=== PATIENT | female | born 1960 | race Caucasian/White ===

== ENCOUNTER 2024-06-06 12:26 | Inpatient (IN) ==
[2024-06-06] MEDS ORDERED: Rocuronium 50 mg VIAL 10 mg/ml 5 ml VIAL (50 mg) ONE (12:41)
[2024-06-06] MEDS ORDERED: Etomidate 40 mg/20 ml (2 MG/ML) 20 ml VIAL (40 mg) ONE (12:41)
[2024-06-06] MEDS ORDERED: Propofol 10 mg/ml 100 ML BTL 0 MG/0 ML BTL ONE (12:41)
[2024-06-06] MEDS ORDERED: fentaNYL 100 mcg/2 ml 50 MCG/ML VIAL ONE (13:12)
[2024-06-06 13:24] LABS: ABS Lymphocytes 1.5 10^3/uL (1.0-4.8); ABS Monocytes 0.5 10^3/uL (0.0-0.9); ABS Neutrophils 6.7 10^3/uL (1.5-7.6); ABS Nucleated RBC 0.01 10^3/ul; Eosinophil % 0.2 %; Hematocrit 31.2 % (35-45); Hemoglobin 10.8 g/dL (11.5-14.3); Lymphocyte % 17.6 %; Mean Corpuscular Hemoglobin 29.8 pg (27-33); Mean Corpuscular Hgb Conc 34.7 g/dL (31-36); Mean Corpuscular Volume 85.9 fL (80-97); Mean Platelet Volume 8.7 fL (7.5-11.2); Nucleated Red Blood Cells % 0.1 %/100WBC (0.0-0.8); Platelet Count 278 10^3/uL (150-450); Red Blood Count 3.64 10^6/uL (3.63-4.92); Red Cell Distribution Width 13.2 % (12-17); White Blood Count 8.8 10^3/uL (3.8-11.8)
[2024-06-06] MEDS: Iodixanol (CONTRAST) 320 MG/ML 100 ML SDV IV ONE (13:29)
[2024-06-06 13:39] LABS: High Sens Troponin Baseline 3 pg/mL (<15)
[2024-06-06 13:42] LABS: Urine Benzodiazepine Screen None Detected (None Detect); Urine Buprenorphine Screen None Detected (None Detect); Urine Cannabinoids Screen None Detected (None Detect); Urine Fentanyl Screen None Detected (None Detect); Urine Hydrocodone Screen None Detected (None Detect); Urine Opiates Screen None Detected (None Detect)
[2024-06-06] MEDS: fentaNYL INFUSION 50 mcg/mL VL 2,500 MCG/50 ML VIAL IV SCH (13:45)
[2024-06-06 13:49] LABS: ALT 14 U/L (7-52); AST 16 U/L (13-39); Acetaminophen < 15 mcg/mL; Albumin 3.8 g/dL (3.2-5.2); Alcohol, S 195 mg/dL (<13); Alkaline Phosphatase 51 U/L (35-149); Anion Gap 12 mmol/L (2-16); Blood Urea Nitrogen 8 mg/dL (6-24); CO2 Carbon Dioxide 20 mmol/L (22-32); Chloride 104 mmol/L (101-111); Creatinine, Serum 0.64 mg/dL (0.51-0.95); Globulin 1.9 g/dL (2-4); Glucose 220 mg/dL (70-100); Salicylate < 2.50 mg/dL (<30); Sodium 136 mmol/L (135-145); Total Bilirubin 0.2 mg/dL (0.2-1.0); Total Protein 5.7 g/dL (6.4-8.9); eGFR CKD-EPI 99.2 (>60)
[2024-06-06] MEDS: fentaNYL 100 mcg/2 ml 50 MCG/ML VIAL IV SLOW PU ONE ×2 (13:59→15:27)
[2024-06-06 15:15] LABS: Resp Rate 15
[2024-06-06] MEDS: Propofol 10 mg/ml 100 ML BTL 1,000 MG/100 ML BTL IV SCH ×2 (15:17→16:42)
[2024-06-06 15:20] LABS: PCO2 Arterial 42 mmHg (35-45); PO2 Arterial 99 mmHg (80-100)
[2024-06-06 15:31] LABS: Creatine Kinase 153 U/L (10-223)
[2024-06-06] MEDS: Chlorhexidine MOUTHWASH 0.12% 15 ML UDC TOPICAL SCH (16:41)
[2024-06-06] MEDS: Norepinephrine 4 MG/250mL D5W 4,000 MCG/250 ML BAG IV SCH (17:29)
[2024-06-06 17:49] LABS: High Sensitivity Troponin 1 Hr 5 pg/mL (<15)
[2024-06-06] MEDS: KCL 20 MEQ/100 ML IVPREMIX 20 MEQ/100 ML BAG IV SCH (18:56)
[2024-06-06] MEDS: Enoxaparin 40 MG/0.4 ML SYR SUBCUT SCH (20:52)
[2024-06-06] MEDS: Famotidine IV 10 MG/ML 2 ml VIAL (20 mg) IV SLOW PU SCH (20:53)
[2024-06-07] MEDS: Midazolam 2 mg/2 ml VIAL 1 mg/ml 2 ml VIAL (2 mg) IV SLOW PU ONE (01:54)
[2024-06-07] MEDS: Midazolam 2 mg/2 ml VIAL 1 mg/ml 2 ml VIAL (2 mg) ONE (01:54)
[2024-06-07 05:08] LABS: ABS Eosinophils 0.1 10^3/uL (0.0-0.5); ABS Lymphocytes 2.2 10^3/uL (1.0-4.8); ABS Monocytes 0.8 10^3/uL (0.0-0.9); ABS Neutrophils 6.5 10^3/uL (1.5-7.6); ABS Nucleated RBC 0.01 10^3/ul; Eosinophil % 1.3 %; Hematocrit 34.2 % (35-45); Hemoglobin 11.5 g/dL (11.5-14.3); Lymphocyte % 23.1 %; Mean Corpuscular Hemoglobin 28.7 pg (27-33); Mean Corpuscular Hgb Conc 33.7 g/dL (31-36); Mean Corpuscular Volume 85.4 fL (80-97); Mean Platelet Volume 8.2 fL (7.5-11.2); Nucleated Red Blood Cells % 0.1 %/100WBC (0.0-0.8); Platelet Count 224 10^3/uL (150-450); Red Cell Distribution Width 13.8 % (12-17); White Blood Count 9.7 10^3/uL (3.8-11.8)
[2024-06-07 05:50] LABS: Calcium 7.1 mg/dL (8.6-10.3); Creatinine, Serum 0.58 mg/dL (0.51-0.95); Magnesium 1.5 mg/dL (1.9-2.7); Potassium 3.9 mmol/L (3.5-5.0); eGFR CKD-EPI 101.6 (>60)
[2024-06-07] MEDS: Magnesium Sulfate 2 gm BAG 2 GM/50 ML BAG IVPB ONE (06:20)
[2024-06-07] MEDS: Magnesium Sulfate IV 1GM/100ML 1 GM/100 ML BAG IV ONE (08:27)
[2024-06-07] MEDS ORDERED: Lorazepam PYXIS KEY PRN (15:08)
[2024-06-07] MEDS: LORazepam 2 mg VIAL 1 ml IV PUSH ONE (16:09)
[2024-06-08 05:19] LABS: Hematocrit 29.8 % (35-45); Hemoglobin 10.4 g/dL (11.5-14.3); Mean Corpuscular Volume 85.7 fL (80-97); Red Blood Count 3.48 10^6/uL (3.63-4.92); White Blood Count 6.3 10^3/uL (3.8-11.8)
[2024-06-08 05:20] LABS: ABS Eosinophils 0.1 10^3/uL (0.0-0.5); ABS Lymphocytes 1.5 10^3/uL (1.0-4.8); ABS Monocytes 0.5 10^3/uL (0.0-0.9); ABS Neutrophils 4.2 10^3/uL (1.5-7.6); Lymphocyte % 23.7 %; Mean Corpuscular Hemoglobin 29.8 pg (27-33); Mean Corpuscular Hgb Conc 34.8 g/dL (31-36); Mean Platelet Volume 8.3 fL (7.5-11.2); Nucleated Red Blood Cells % 0.1 %/100WBC (0.0-0.8); Platelet Count 154 10^3/uL (150-450); Red Cell Distribution Width 13.6 % (12-17)
[2024-06-08 05:48] LABS: Calcium 7.6 mg/dL (8.6-10.3); Creatinine, Serum 0.57 mg/dL (0.51-0.95); Potassium 3.8 mmol/L (3.5-5.0)
[2024-06-08 13:54] LABS: Methemoglobin, B 0.1 % (0.0-1.5)
[2024-06-08] MEDS: LORazepam 2 mg VIAL 1 ml IV PUSH ONE (14:06)
[2024-06-08 15:41] VITALS: BP 122/89
== END 2024-06-08 16:22 | DRG 816 ==
LOC: ED 12:26 → EDHOLD 14:14 → ICU 15:13
PROVIDERS: ADMIT Internal Medicine Pulmonary Disease; ATTEND Internal Medicine Pulmonary Disease

== ENCOUNTER 2024-06-08 13:25 | Inpatient (IN) ==
[2024-06-08] MEDS ORDERED: Al Hydrox/Mg Hydrox/Simet LIQ 30 ML UDC PO PRN (14:04)
[2024-06-09] MEDS: Vitamin THERAPEUTIC TAB PO SCH (07:55)
[2024-06-09 08:42] LABS: HDL Cholesterol 47.1 mg/dL
[2024-06-10 16:47] LABS: Urine Appearance Turbid; Urine Bilirubin Negative (Negative); Urine Blood Negative (Negative); Urine Color Colorless; Urine Glucose Negative (Negative); Urine Ketones Negative (Negative); Urine Nitrite Negative (Negative); Urine Protein Negative (Negative); Urine Specific Gravity 1.002 (1.002-1.030); Urine Urobilinogen Negative (Negative)
[2024-06-10 17:05] LABS: Urine Bacteria 1+ /HPF (Absent); Urine Red Blood Cell 3+(>10/hpf) /HPF (0-Trace); Urine Squamous Epithelial Cell Present /HPF (Absent); Urine White Blood Cell 2+(11-20/hpf) /HPF (0-Trace)
[2024-06-17] MEDS: Influenza Vaccine *TRI* 2024-25* 0.5 ML SYRINGE IM ONE (10:50)
[2024-06-18 07:28] VITALS: BP 133/84
== END 2024-06-18 12:19 | disposition home or self-care (01) | DRG 197 ==
LOC: BSU 13:58
PROVIDERS: ADMIT Student in an Organized Health Care Education/Training Program; ATTEND Student in an Organized Health Care Education/Training Program

== ENCOUNTER 2024-06-23 20:28 | Inpatient (IN) ==
[2024-06-23 21:56] LABS: Urine Appearance Clear; Urine Bilirubin Negative (Negative); Urine Blood Negative (Negative); Urine Color Colorless; Urine Glucose Negative (Negative); Urine Ketones Negative (Negative); Urine Nitrite Negative (Negative); Urine Protein Negative (Negative); Urine Specific Gravity 1.004 (1.002-1.030); Urine Urobilinogen Negative (Negative); Urine pH 6.5 (5.0-8.0)
[2024-06-23 21:57] LABS: ABS Eosinophils 0.2 10^3/uL (0.0-0.5); ABS Lymphocytes 1.4 10^3/uL (1.0-4.8); ABS Monocytes 0.5 10^3/uL (0.0-0.9); ABS Neutrophils 5.6 10^3/uL (1.5-7.6); Hematocrit 35.6 % (35-45); Hemoglobin 11.9 g/dL (11.5-14.3); Lymphocyte % 18.7 %; Mean Corpuscular Hemoglobin 28.8 pg (27-33); Mean Corpuscular Hgb Conc 33.4 g/dL (31-36); Mean Corpuscular Volume 86.2 fL (80-97); Mean Platelet Volume 8.3 fL (7.5-11.2); Platelet Count 285 10^3/uL (150-450); Red Blood Count 4.13 10^6/uL (3.63-4.92); Red Cell Distribution Width 14.1 % (12-17); White Blood Count 7.8 10^3/uL (3.8-11.8)
[2024-06-23 22:02] LABS: Urine Bacteria 1+ /HPF (Absent); Urine Red Blood Cell 2+(6-10/hpf) /HPF (0-Trace); Urine Squamous Epithelial Cell Present /HPF (Absent); Urine White Blood Cell 1+(6-10/hpf) /HPF (0-Trace)
[2024-06-23 22:14] LABS: Urine Benzodiazepine Screen None Detected (None Detect); Urine Cannabinoids Screen None Detected (None Detect); Urine Opiates Screen None Detected (None Detect)
[2024-06-23] MEDS ORDERED: Nicotine GUM 2MG FRUIT FLAVOR PO PRN (23:08)
[2024-06-23] MEDS ORDERED: Al Hydrox/Mg Hydrox/Simet LIQ 30 ML UDC PO PRN (23:08)
[2024-06-24 00:57] LABS: ALT 20 U/L (7-52); AST 15 U/L (13-39); Acetaminophen < 15 mcg/mL; Albumin 4.1 g/dL (3.2-5.2); Albumin/Globulin Ratio 1.9 (1-3); Alcohol, S < 13 mg/dL (<13); Alkaline Phosphatase 59 U/L (35-149); Anion Gap 9 mmol/L (2-16); Blood Urea Nitrogen 13 mg/dL (6-24); CO2 Carbon Dioxide 27 mmol/L (22-32); Calcium 9.3 mg/dL (8.6-10.3); Chloride 103 mmol/L (101-111); Creatinine, Serum 0.61 mg/dL (0.51-0.95); Globulin 2.2 g/dL (2-4); Glucose 89 mg/dL (70-100); Potassium 3.9 mmol/L (3.5-5.0); Salicylate < 2.50 mg/dL (<30); Sodium 139 mmol/L (135-145); Total Bilirubin 0.2 mg/dL (0.2-1.0); Total Protein 6.3 g/dL (6.4-8.9); eGFR CKD-EPI 100.4 (>60)
[2024-06-24] MEDS: Gabapentin 600 mg TAB (NF) PO ONE (02:49)
[2024-06-24 08:05] LABS: HDL Cholesterol 52.5 mg/dL
[2024-06-24] MEDS: Vitamin THERAPEUTIC TAB PO SCH (10:15)
[2024-06-26 10:38] VITALS: BP 110/74
== END 2024-06-26 13:08 | disposition home or self-care (01) | DRG 754 ==
LOC: ED 20:28 → EDHOLD 23:12 → BSU 06-25 11:56
PROVIDERS: ADMIT Psychiatry & Neurology Psychiatry; ATTEND Student in an Organized Health Care Education/Training Program

== ENCOUNTER 2024-09-19 19:23 | Observation (INO) ==
[2024-09-19] MEDS: Ondansetron 4 mg VIAL 2 MG/ML 2 ml VIAL IV ONE (20:37)
[2024-09-19] MEDS: Lactated Ringers 1000 ml BAG 1,000 ML IV ONE (20:38)
[2024-09-19 20:53] LABS: ABS Eosinophils 0.1 10^3/uL (0.0-0.5); ABS Monocytes 0.5 10^3/uL (0.0-0.9); ABS Neutrophils 3.9 10^3/uL (1.5-7.6); ABS Nucleated RBC 0.01 10^3/ul; Eosinophil % 1.2 %; Hematocrit 37.9 % (35-45); Hemoglobin 12.8 g/dL (11.5-14.3); Lymphocyte % 18.9 %; Mean Corpuscular Hemoglobin 28.2 pg (27-33); Mean Corpuscular Hgb Conc 33.8 g/dL (31-36); Mean Corpuscular Volume 83.4 fL (80-97); Mean Platelet Volume 8.1 fL (7.5-11.2); Nucleated Red Blood Cells % 0.1 %/100WBC (0.0-0.8); Platelet Count 193 10^3/uL (150-450); Red Blood Count 4.54 10^6/uL (3.63-4.92); Red Cell Distribution Width 13.6 % (12-17); White Blood Count 5.5 10^3/uL (3.8-11.8)
[2024-09-19 21:13] LABS: Albumin 4.6 g/dL (3.5-5.7); Albumin/Globulin Ratio 2.2 (1-3); C Reactive Protein 6.41 mg/L (<8.01); Calcium 9.4 mg/dL (8.6-10.3); Creatinine, Serum 0.85 mg/dL (0.51-0.95); Globulin 2.1 g/dL (2-4); Total Bilirubin 0.2 mg/dL (0.2-1.0); Total Protein 6.7 g/dL (6.4-8.9); eGFR CKD-EPI 76.5 (>60)
[2024-09-19] MEDS ORDERED: Zosyn per Pharmacy NOTE FOLLOW UP SCH (23:45)
[2024-09-19] MEDS: Piperacillin/Tazobac 3.375 BAG 3.375 GM/100 ML BAG IV ONE (23:48)
[2024-09-20] MEDS: Lactated Ringers 1000 ml BAG 1,000 ML IV SCH (02:25)
[2024-09-20] MEDS ORDERED: ZOSYN 3.375 GM Q8H per EXTENDED INFUSION IV SCH (04:00)
[2024-09-20] MEDS: ZOSYN 3.375 GM Q8H per EXTENDED INFUSION IV SCH (04:21)
[2024-09-20] MEDS: Ondansetron 4 mg VIAL 2 MG/ML 2 ml VIAL IV PRN (04:31)
[2024-09-20 04:45] LABS: ABS Eosinophils 0.1 10^3/uL (0.0-0.5); ABS Lymphocytes 1.4 10^3/uL (1.0-4.8); ABS Monocytes 0.6 10^3/uL (0.0-0.9); ABS Neutrophils 4.2 10^3/uL (1.5-7.6); Eosinophil % 1.4 %; Hematocrit 36.9 % (35-45); Hemoglobin 12.3 g/dL (11.5-14.3); Lymphocyte % 22.7 %; Mean Corpuscular Hgb Conc 33.3 g/dL (31-36); Mean Corpuscular Volume 84.1 fL (80-97); Platelet Count 181 10^3/uL (150-450); Red Blood Count 4.38 10^6/uL (3.63-4.92); Red Cell Distribution Width 13.9 % (12-17); White Blood Count 6.3 10^3/uL (3.8-11.8)
[2024-09-20 05:20] LABS: Albumin 4.1 g/dL (3.5-5.7); Albumin/Globulin Ratio 2.1 (1-3); Creatinine, Serum 0.8 mg/dL (0.51-0.95); Potassium 4.3 mmol/L (3.5-5.0); Total Bilirubin 0.4 mg/dL (0.2-1.0); Total Protein 6.1 g/dL (6.4-8.9); eGFR CKD-EPI 82.2 (>60)
[2024-09-20] MEDS: Iohexol 350 (CONTRAST) 500 ML MDV IV ONE (06:30)
[2024-09-20] MEDS ORDERED: Bupivacaine 0.25% EPI 200,000 30 ML SDV ONE (10:28)
[2024-09-20] MEDS ORDERED: Ondansetron 4 mg VIAL 2 MG/ML 2 ml VIAL ONE (11:01)
[2024-09-20] MEDS ORDERED: Propofol 10 MG/ML 20 ML BTL ONE (11:01)
[2024-09-20] MEDS ORDERED: Lidocaine 2% PF 5 ML VIAL ONE (11:01)
[2024-09-20] MEDS ORDERED: Dexamethasone IV 4 MG/ML VIAL 1 ml VIAL ONE ×3 (11:01→14:12)
[2024-09-20] MEDS ORDERED: Rocuronium 50 mg VIAL 10 mg/ml 5 ml VIAL (50 mg) ONE (11:01)
[2024-09-20] MEDS ORDERED: Midazolam 2 mg/2 ml VIAL 1 mg/ml 2 ml VIAL (2 mg) ONE (11:02)
[2024-09-20] MEDS ORDERED: fentaNYL 100 mcg/2 ml 50 MCG/ML VIAL ONE ×2 (11:02→13:48)
[2024-09-20] MEDS ORDERED: Naloxone 0.4 mg VIAL 0.4 mg/ml 1 ml VIAL IV PRN (11:20)
[2024-09-20] MEDS ORDERED: HYDROmorphone 0.5 MG/0.5 ML SYRINGE ONE (13:09)
[2024-09-20] MEDS ORDERED: Dexmedetomidine 200 mcg/2 ml 2 ml VIAL (200 mcg) ONE (13:14)
[2024-09-20] MEDS ORDERED: HYDROmorphone 1 MG/1 ML SYRINGE ONE (14:30)
[2024-09-20] MEDS: HYDROmorphone 1 MG/1 ML SYRINGE IV PRN (14:31)
[2024-09-20] MEDS ORDERED: Acetaminophen IV 1 GM/100ML 1,000 MG/100 ML BAG IV ONE (15:03)
[2024-09-20] MEDS: Acetaminophen IV 1 GM/100ML 1,000 MG/100 ML BAG IV ONE (15:07)
[2024-09-20 16:19] VITALS: BP 105/61
== END 2024-09-20 16:11 | disposition home or self-care (01) ==
LOC: EDHOLD 19:23 → ED 19:23 → SUATTDRO 23:21 → MEDTELE 09-20 01:48
PROVIDERS: ADMIT Internal Medicine; ATTEND Surgery